=== PATIENT | female | born 1970 | race Caucasian/White ===

== ENCOUNTER → 2023-07-16 15:18 | Outpatient (REF) | payer OTHER, SELFPAY | LOC: WDC 15:18 | PROVIDERS: ATTENDING PHYSICIAN Family Medicine | DX: Z12.31 Encounter for screening mammogram for malignant neoplasm of breast (principal) | CPT/HCPCS: 77063; 77067 ==

== ENCOUNTER 2024-08-24 22:59 | Emergency (ER) | payer OTHER, SELFPAY ==
[2024-08-24 23:01] VITALS: BP 90/58
[2024-08-25 00:20] VITALS: BP 107/71
[2024-08-25] MEDS: NORCO 5/325 1 TABLET PO (01:05)
[2024-08-25] MEDS: TORADOL 60 MG IM (01:06)
--- NOTE | 2024-08-25 01:15 | ED.GENMED ---
History of Present Illness
General
Chief Complaint: Fall
Source: patient
Exam Limitations: none
Time Seen by Provider: 08/25/24 00:20
Nursing documentation reviewed up to this point in time: agreed with
History of Present Illness
History of Present Illness:
This is a 53-year-old woman who states yesterday while vacationing in [facility] she and some friends were walking through and investigating an old abandoned house. While walking about the house she inadvertently fell through a large hole in the
marble nilesh and fell approximately 12 to 14 feet down to the first floor of this house. She denies head injury, denies loss of consciousness, fell onto her right side and has sustained moderate bruising to her right elbow, right lateral trunk,
right lateral thigh. She initially complained of significant pain to her left hip and believes her left hip was dislocated. She states her hip was 'popped back into place' by her student driving instructor who is accompanying her.
She has been able to ambulate and bear weight and was evaluated in an ER in [facility] and underwent right rib series with chest x-ray, 2 view lumbar spine as well as x-rays of her right elbow.
I have reviewed these x-rays which she shows me on her cell phone.
Chest x-ray shows a minimally displaced right lateral sixth rib fracture. Clear lung bhardwaj. No pneumothorax nor pleural effusion.
Right elbow x-ray, I question a minute avulsion of the posterior olecranon process otherwise no other evidence of fracture.
2 view lumbar spine: On lateral view I question a linear lucency through the first lumbar vertebra body without evidence of compression deformity and not appreciable on the AP view.
Patient flew home today and presents immediately to the ED for further evaluation.
She does admit to increased overall stiffness, moderate left hip pain with difficulty bearing weight, mild pain to her right lateral chest, mild pain right posterior elbow but she denies chest pain, no shortness of breath, no cough, no abdominal
pain, no nausea nor vomiting. No difficulty moving her bowels or bladder. She denies hematuria. She denies dizziness nor lightheadedness.
She denies headache, denies neck or upper back pain. No weakness nor numbness.
She has been taking ibuprofen for pain, 600 mg with last dose at 4 PM.
Past History
Past History
ED Past Medical History: Asthma
ED Past Surgical History: Other (Breast augmentation, rhinoplasty)
Social History
Tobacco: Non-smoker
Personal:
Living: with family
Employment: Employed ([employer])
Family History
Family History: Other (Noncontributory)
Phy Exam
Physical Exam
Physical Exam:
TRAUMA EXAM:
VITAL SIGNS: Vital signs reviewed, cooperative
DISTRESS: No active disease
EYES: Pupils reactive, no orbital trauma
NOSE: No deformity or epistaxis
FACE AND SCALP: No scalp or facial trauma, external canals no blood
NECK: Supple nontender, full range of motion without difficulty nor pain.
BACK: Mild tenderness globally to the lumbar spine, pelvis stable to compression. Straight leg raising is negative bilaterally.
RESPIRATORY: No distress, breath sounds normal, mild to moderate tenderness right lateral chest wall with dark purple ecchymosis right lateral chest pole. There is no crepitus.
CARDIAC: No murmur, pulses equal and strong
ABDOMEN: Soft nontender bowel sounds normal
SKIN: Warm and dry, normal color, good turgor. There is a superficial abrasion with mild local ecchymosis left anterior brian.
EXTREMITIES: There is moderate purple ecchymosis and mild to moderate soft tissue swelling posterior right elbow with mild tenderness about the olecranon process. There is full elbow range of motion without difficulty. Mild tenderness about the
left hip with mildly restricted range of motion related to pain. Contusion with mild ecchymosis left posterior buttock at left SI joint region with mild to moderate local tenderness to palpation. No crepitus. No leg length discrepancy.
There is mild dark purple ecchymosis right lateral thigh. Full right hip range of motion without difficulty nor pain. Peripheral pulses are full and equal. There is no clubbing nor cyanosis nor peripheral edema.
NEUROLOGICAL: Alert, oriented, no motor deficits
PSYCH: Mood affect normal
Course
Orders/Labs/Results
Orders:
Orders
08/25/24 00:01
Hip, Left 2-3 Views [CR Hip - LT w/wo Pel 2-3 Vw*] Urgent
Comment:
Reason For Exam: injury and pain
Include a pelvis x-ray?: Yes
08/25/24 00:59
Hydrocodone 5/APAP 325 [[place] 5/325] 1 tablet PO NOW STA
Ketorolac [Toradol] 60 mg IM NOW STA
Lumbar Spine Complete, 4 View [CR Lumbar Spine Comp Min 4 Vw*] Urgent
Comment:
Reason For Exam: back pain, 12 ft fall 08/23/24
08/25/24 01:30
Tetanus/Diphth/Acelpertussis [Adacel] 0.5 ml IM .ONCE ONE
Incentive Spirometry [Rx Incentive Spirometry] [RESP] Urgent
Frequency: q1h while awake
08/25/24 02:09
Splints/Slings/Crut- Treatment ONCE
Crutches: Yes
Vital Signs
Initial and Last Documented VS:
Initial Vital Signs
Temp Pulse Resp BP Pulse Ox
97.2 F 66 20 90/58 98
08/24/24 23:01 08/24/24 23:01 08/24/24 23:01 08/24/24 23:01 08/24/24 23:01
Last Documented Vital Signs
Temp Pulse Resp BP Pulse Ox
97.2 F 66 20 107/71 96
08/24/24 23:01 08/25/24 00:20 08/24/24 23:01 08/25/24 00:20 08/25/24 00:20
MDM/Problems Addressed
Differential Diagnosis Includes:
Concern for occult left hip fracture, acetabular fracture, pelvic fracture thus left hip/pelvis x-ray obtained which is unremarkable. No evidence of hip fracture nor pelvic fracture.
Upon review of x-rays from [facility], there is concern for a linear fracture of the L1 vertebral body thus will check lumbar spine x-ray.
Patient remains hemodynamically stable, no neurodeficits.
Abdomen is soft without appreciable tenderness.
As injury occurred over 24 hours ago, stable vital signs, soft and benign abdomen, no indication for laboratory studies nor abdominal imaging.
Will medicate for pain with an IM dose of Toradol and given oral dose of Vicodin.
She is noted to have a linear abrasion left anterior brian. Will update Tdap.
Due to singular rib fracture, will provide incentive spirometer
*Radiology
Radiology exam reviewed: preliminary read by ED provider (Lumbar spine film shows no evidence of lumbar fracture. There is note of lateral right sixth rib fracture.)
*Pulse Oximetry
Patient hypoxic: no
*Critical Care Note
Total Time (30-74mins, 75-104mins- exclusive of procedures): Not Applicable
Update Note
Update Note:
02:05
Patient able to stand and bare partial weight on her left leg.
Has been provided with crutches which she has done well with for partial weightbearing left lower extremity.
Prescription for ibuprofen as well as a few Vicodin have been provided for pain.
Recommend follow-up with PCP and patient has been referred to orthopedics as well.
ED Attending Note
-
Portions of this chart may have been created with voice recognition software.� Occasional wrong word or��sound alike� substitutions may have occurred due to the inherent limitations of voice recognition software.
Discharge Plan
Departure
Patient Disposition: Home (Routine Discharge)
Date of Disposition: 08/25/24
Time of Disposition: 01:45
Patient with high blood pressure during this ER visit?: No
Condition: Good
Discharge Problem:
right 6th rib fracture, avulsion fracture R olecranon process, Sprain of left hip
Instructions: Contusion (DC), Tdap vaccine, Hip Pain ED, How to use crutches, How to use an incentive spirometer, Rib fracture or bruised rib - ED discharge instructions
Prescriptions:
New
ibuprofen 600 mg tablet
600 mg PO QID PRN (Reason: fever or pain) Qty: 30 0RF
hydrocodone-acetaminophen 5-300 mg tablet
1 tab PO Q8H PRN (Reason: Pain) Qty: 10 0RF
No Action
hydrocodone-acetaminophen 1 TABLET tablet
1 tab PO Q4HPRN PRN (Reason: severe pain) Qty: 10 0RF
Referrals:
Dave Gastelum MD [Family Provider] - Call in 1-3 days for appt
Richard Zhang MD [Active] - Call in 1-3 days for appt
Interventions
Interventions:
*Risk Screen - Suicide Last Done: 08/24/24 23:01
*General Assessment Last Done: 08/25/24 00:23
*Neglect/Abuse Screening Last Done: 08/24/24 23:01
*ED- Fall Risk Assessment Last Done: 08/25/24 00:23
*ED COVID-19 Vaccine History Last Done: 08/25/24 00:23
ED- Neurological Assessment Last Done: 08/25/24 00:24
ED-Skin Assessment Last Done: 08/25/24 00:26
Discharge Date and Time
Print Language: PORTUGUESE
[2024-08-25] MEDS: ADACEL 0.5 ML IM (01:43)
[2024-08-25 02:25] VITALS: BP 101/73
== END 2024-08-25 02:26 | disposition home or self-care (01) ==
LOC: EMR 22:59
PROVIDERS: EMERGENCY PHYSICIAN Emergency Medicine; FAMILY PHYSICIAN Family Medicine
DX: S22.31XA Fracture of one rib, right side, initial encounter for closed fracture (principal); S52.021A Displaced fracture of olecranon process without intraarticular extension of right ulna, initial encounter for closed fracture; S73.102A Unspecified sprain of left hip, initial encounter; S50.01XA Contusion of right elbow, initial encounter; S20.211A Contusion of right front wall of thorax, initial encounter; S80.12XA Contusion of left lower leg, initial encounter; S70.11XA Contusion of right thigh, initial encounter; S80.812A Abrasion, left lower leg, initial encounter; Z23 Encounter for immunization; W17.89XA Other fall from one level to another, initial encounter; Y93.01 Activity, walking, marching and hiking; Y92.89 Other specified places as the place of occurrence of the external cause; J45.909 Unspecified asthma, uncomplicated
CPT/HCPCS: 99284; 90471; 72110; 73502; 90715